=== PATIENT | male | born 1960 | race Caucasian/White ===

== ENCOUNTER 2017-10-13 02:07 | Day surgery (SDC) | payer BC ==
[~2017-10-13] VITALS: Ht 172.7 cm; Wt 120.0 kg
[~2017-10-13 02:07] MED LIST: ASPI325 PO; ASPI81EC PO; ATOR80 PO; Amaryl4 MG PO; CHOLESTEROL MED; CYCL10 PO; EFFIENT; HYDACE5 PO; ISOMON20 PO; JARDIANCE10 MG PO; LISHYD1012 PO; LISI5 PO; LORA10 PO; METF500 PO; NAPR550 PO; OXYACE5T PO; RANI150 PO; RXCYCL10 PO; RXNAPNA550 PO; RXOXYACE PO; SERT50 PO; Stool Softener100 MG PO
== END 2017-10-13 12:45 | disposition home or self-care (01) ==
LOC: MHTC 02:07
PROC: 4A023N7 Measurement of Cardiac Sampling and Pressure, Left Heart, Percutaneous Approach (ICD-10-PCS; principal; 2017-10-13)
PROC: B211YZZ Fluoroscopy of Multiple Coronary Arteries using Other Contrast (ICD-10-PCS; principal; 2017-10-13)
DX: I25.119 Atherosclerotic heart disease of native coronary artery with unspecified angina pectoris (principal); R00.1 Bradycardia, unspecified; E11.9 Type 2 diabetes mellitus without complications; E78.5 Hyperlipidemia, unspecified; I25.2 Old myocardial infarction; Z87.891 Personal history of nicotine dependence
CPT/HCPCS: 82947; 93225; 93226; 93454; 99152; 99153; C1769; C1894; J0461; J1644; J2001; J2250; J3010; J7030; Q9967

== ENCOUNTER → 2018-09-13 | Outpatient (CLI) | payer BC ==
[2018-09-13 16:21] LABS: Source, Urine Clean Catch
[2018-09-13 16:31] LABS: Bilirubin, Urine Neg (Neg); Blood, Urine 2+ (Neg); Glucose Qualitative, Urine Neg (Neg); Ketones, Urine Neg (Neg); Leukocyte Esterase, Urine Neg (Neg); Nitrite, Urine Neg (Neg); Protein, Urine 1+ (Neg); Specific Gravity, Urine 1.025 (1.003-1.022); Urobilinogen, Urine NORM (Normal)
[2018-09-13 16:47] LABS: Appearance, Urine Clear (Clear); Color, Urine Yellow (P-Yellow)
[2018-09-13 16:48] LABS: Bacteria Not Seen /hpf; Red Blood Cells, Urine 0-2 /hpf (0-2); Squamous Epithelial Cells Rare /hpf (Few); White Blood Cells, Urine 0-2 /hpf (0-5)
== END | disposition home or self-care (01) ==
LOC: LAB 16:20 → LAB SHORT 16:20 → LAB FUT 09-14 15:15 → EDSTATUS 09-14 15:15
PROVIDERS: Internal Medicine
DX: R30.0 Dysuria (principal)
CPT/HCPCS: 81001

== ENCOUNTER 2021-02-11 07:15 | Day surgery (SDC) | payer BC, SELFPAY ==
[~2021-02-11] VITALS: Ht 172.7 cm; Wt 109.1 kg
[~2021-02-11 07:15] MED LIST changes: +ASPI81CH PO; +FERREX 150150 M1; +TRULICITY0.75 MG/01 SQ; +VITAMIN B125000 MC1
--- NOTE | 2021-02-11 08:50 | NUR ---
02/11/21 0849 Melba Ontiveros History, Chart, Medications and Allergies reviewed before start of procedure.PATIENT DETERMINED TO BE ASA APPROPRIATE FOR PROPOFOL SEDATION PRIOR TO START OF PROCEDURE BY .MONITOR INTACT WITH CONTINUOUS PULSE OXIMETRY AND INTERMITTENT BP.3-LEAD EKG REVIEWED WITH PHYSICIAN PRIOR TO START OF PROCEDURE.O2 VIA N/C INTACT THROUGHOUT SEDATION/PROCEDURE.
--- NOTE | 2021-02-11 09:36 | NUR ---
Patient up to Ambulate independently. Gait steady. Discharge instructions reviewed with patient. Patient verbalizes understanding. Copy given to patient to take home. Discharged via wheelchair to private car for ride home.
== END 2021-02-11 22:55 | disposition home or self-care (01) ==
LOC: ORSCMMR 07:15 → ORSCSDS 08:00 → ORSCMMR 09:00 → ORSCSDS 09:00 → ORSCMMR 22:55
PROVIDERS: Surgery
PROC: 0DBM8ZX Excision of Descending Colon, Via Natural or Artificial Opening Endoscopic, Diagnostic (ICD-10-PCS; principal; 2021-02-11 09:00)
PROC: 0DBP8ZX Excision of Rectum, Via Natural or Artificial Opening Endoscopic, Diagnostic (ICD-10-PCS; principal; 2021-02-11 09:00)
DX: Z12.11 Encounter for screening for malignant neoplasm of colon (principal); Z86.010 Personal history of colon polyps; D12.4 Benign neoplasm of descending colon; D12.8 Benign neoplasm of rectum; K57.30 Diverticulosis of large intestine without perforation or abscess without bleeding; E78.5 Hyperlipidemia, unspecified; G47.33 Obstructive sleep apnea (adult) (pediatric); E11.9 Type 2 diabetes mellitus without complications; K76.0 Fatty (change of) liver, not elsewhere classified; Z79.899 Other long term (current) drug therapy; Z79.82 Long term (current) use of aspirin; Z79.84 Long term (current) use of oral hypoglycemic drugs
CPT/HCPCS: 82947; 88305; J2704; J7120